=== PATIENT | male | born 1950 | race Caucasian/White ===

== ENCOUNTER 2021-01-15 08:09 | Day surgery (SDC) | payer MEDICARE, OTHER ==
[~2021-01-15] VITALS: Ht 188 cm; Wt 118.0 kg
[2021-01-15] VITALS (9 sets, daily range): BP systolic 122–141; BP diastolic 62–73
[2021-01-15] MEDS ORDERED: diphenhydrAMINE 25mg capsule PO PRN (08:40)
[2021-01-15] MEDS ORDERED: normal saline 1,000 ML IV SCH (08:40)
[2021-01-15] MEDS ORDERED: INSU100V13 (08:54)
[2021-01-15] MEDS ORDERED: METO-539 PO (08:54)
[2021-01-15] MEDS ORDERED: ALBU2.5V10 INH (08:54)
[2021-01-15] MEDS ORDERED: ATOR40TA72 PO (08:54)
[2021-01-15] MEDS ORDERED: ASPI-1071 PO (08:54)
[2021-01-15] MEDS ORDERED: GABA300T25 PO (08:54)
[2021-01-15] MEDS ORDERED: DOCU100C40 PO (08:54)
[2021-01-15] MEDS ORDERED: ASCO125T PO (08:54)
[2021-01-15] MEDS ORDERED: DULA0.75 SQ (08:54)
[2021-01-15] MEDS ORDERED: POTA8TAB3 PO (08:54)
[2021-01-15] MEDS ORDERED: TERA2CAP4 PO (08:54)
[2021-01-15] MEDS ORDERED: MAGN400C PO (08:54)
[2021-01-15] MEDS ORDERED: CHOL500049 PO (08:54)
[2021-01-15] MEDS ORDERED: WARF1TAB83 PO (08:54)
[2021-01-15] MEDS ORDERED: PANT40TA54 PO (08:54)
[2021-01-15] MEDS ORDERED: CANA300T PO (08:54)
[2021-01-15] MEDS ORDERED: iohexol 350 MG/ML 50ML vial IV ONE (09:18)
[2021-01-15] MEDS ORDERED: midazolam 1 mg/ML 2ml injection ONE ×3 (09:18→10:21)
[2021-01-15] MEDS ORDERED: fentaNYL/PF 50MCG/1 ML 2ML syringe ONE (09:18)
[2021-01-15] MEDS ORDERED: LIDOcaine 1% (10mg/ml)w/preservative injection 20ml MDV ONE (09:18)
[2021-01-15] MEDS ORDERED: heparin 1,000unit/ml 10ml vial 10 ML ONE (09:18)
[2021-01-15] MEDS ORDERED: iohexol 350MG/ML 100ml bottle IV ONE (09:19)
[2021-01-15 10:09] LABS: ALBUMIN 4.1 G/DL (3.4-5.0); ANION GAP 11 (8-16); BLOOD UREA NITROGEN 19 MG/DL (7-18); BUN/CREATININE RATIO 16.7 (5.4-32.0); CALCIUM 9.5 MG/DL (8.5-10.1); CHLORIDE 108 MMOL/L (99-107); CREATININE 1.14 MG/DL (0.60-1.10); GLUCOSE 165 MG/DL (70-104); MAGNESIUM 2.1 MG/DL (1.5-2.4); POTASSIUM 4.1 MMOL/L (3.5-5.1); SODIUM 145 MMOL/L (135-145); TOTAL CARBON DIOXIDE 26.4 MMOL/L (24-32); eGFR 63 ML/MIN
[2021-01-15 10:12] LABS: BASOPHILS % (AUTO) 0.7 % (0-1); EOSINOPHILS % (AUTO) 0.6 % (0-6); HEMATOCRIT 46.2 % (42.0-52.0); HEMOGLOBIN 15.3 g/dl (14.0-17.9); LYMPHOCYTES % (AUTO) 16.9 % (21-51); MEAN CORPUSCULAR HEMOGLOBIN 31.1 PG (27.0-31.0); MEAN CORPUSCULAR HGB CONC 33.1 g/dL (33.0-36.5); MEAN CORPUSCULAR VOLUME 93.9 FL (78-98); MEAN PLATELET VOLUME 10.3 FL (7.4-10.4); MONOCYTES # (AUTO) 0.4 X10'3 (0-0.9); MONOCYTES % (AUTO) 6.8 % (2-12); NEUTROPHILS # (AUTO) 4.6 X10'3 (1.8-7.7); PLATELET COUNT 104 X10'3 (140-440); RED BLOOD COUNT 4.92 X10'6 (4.70-6.10); RED CELL DISTRIBUTION WIDTH 14.6 % (11.5-14.5); WHITE BLOOD COUNT 6.1 X10'3 (4.5-11.0)
[2021-01-15] MEDS ORDERED: acetaminophen 325mg tablet PO PRN (11:40)
[2021-01-15] MEDS ORDERED: proCHLORperazine 10 MG/2 ml inj IV PRN (11:40)
[2021-01-15] MEDS ORDERED: ondansetron/PF 4mg/2ml inj IV PRN (11:40)
[2021-01-15] MEDS ORDERED: HYDROcodone/acetaminophen 5mg/325mg tablet PO PRN (11:40)
[2021-01-15] MEDS ORDERED: HYDROcodone/acetaminophen 10/325mg tab PO PRN (11:40)
[2021-01-18] MEDS ORDERED: WARF6TAB49 PO ×2 (13:13)
[2021-01-18] MEDS ORDERED: WARF3TAB56 PO (13:13)
[2021-01-18] MEDS ORDERED: WARF-55 PO (13:13)
[2021-01-18] MEDS ORDERED: PREVAGEN (13:15)
[2021-01-18] MEDS ORDERED: CHOL10006 PO (16:34)
[2021-01-19] MEDS ORDERED: ASCO-134 PO (11:18)
[2021-01-19] MEDS ORDERED: ESOM40CA54 PO (11:18)
[2021-01-19] MEDS ORDERED: MAGN250T11 PO (11:18)
[2021-01-19] MEDS ORDERED: ALBU8HFA PO (11:18)
[2021-01-19] MEDS ORDERED: GABA300C PO (11:18)
[2021-01-19] MEDS ORDERED: WARF-55 PO (11:23)
[2021-01-19] MEDS ORDERED: WARF1TAB83 PO (11:23)
== END 2021-01-15 14:35 | disposition home or self-care (01) ==
LOC: SSTAY O 08:09
PROVIDERS: ATTEND Internal Medicine Cardiovascular Disease
DX: T82.857A Stenosis of other cardiac prosthetic devices, implants and grafts, initial encounter (principal); I27.22 Pulmonary hypertension due to left heart disease; I48.20 Chronic atrial fibrillation, unspecified; E11.9 Type 2 diabetes mellitus without complications; I10 Essential (primary) hypertension; E78.5 Hyperlipidemia, unspecified; Z79.01 Long term (current) use of anticoagulants; Z79.4 Long term (current) use of insulin; Z79.899 Other long term (current) drug therapy; Z79.82 Long term (current) use of aspirin; Z95.3 Presence of xenogenic heart valve; Y83.2 Surgical operation with anastomosis, bypass or graft as the cause of abnormal reaction of the patient, or of later complication, without mention of misadventure at the time of the procedure; Y92.89 Other specified places as the place of occurrence of the external cause
CPT/HCPCS: 36415; 80048; 83735; 85025; 85610; 93005; 93456; 99152; 99153; C1760; C1769; C1894; J1644; J2001; J2250; J3010; Q9967; A4620; A6258; C1751

== ENCOUNTER 2022-07-04 06:26 | Day surgery (SDC) | payer MEDICARE, OTHER ==
[~2022-07-04] VITALS: Ht 188 cm; Wt 118.1 kg
[2022-07-04] VITALS (7 sets, daily range): BP systolic 109–148; BP diastolic 54–80
[~2022-07-04 06:26] MED LIST: ALBU8HFA PO; ASCO-134 PO; ASPI-1071 PO; ATOR40TA72 PO; CANA300T PO; CHOL10006 PO; DOCU100C40 PO; DULA0.75 SQ; ESOM40CA54 PO; GABA300C PO; GUAI600T45 PO; INSU100V13; MAGN250T11 PO; METO-539 PO; POTA-82 PO; PREVAGEN; TERA2CAP4 PO; WARF-55 PO; WARF1TAB83 PO
[2022-07-04] MEDS ORDERED: vancomycin/NS 1 GM ADD-VANTAGE 250 ML X 1 DOSE IV ONE (07:00)
[2022-07-04] MEDS ORDERED: normal saline 1000ml 1,000 ML IV SCH (07:00)
[2022-07-04] MEDS ORDERED: cefazolin/dext.iso 2gm/100ml 100 ML IV ONE (07:00)
[2022-07-04 07:35] LABS: BASOPHILS % (AUTO) 0.6 % (0-1); EOSINOPHILS # (AUTO) 0.1 X10'3 (0-0.9); EOSINOPHILS % (AUTO) 1.5 % (0-6); LYMPHOCYTES # (AUTO) 1.4 X10'3 (1.1-4.8); LYMPHOCYTES % (AUTO) 24.3 % (21-51); MEAN CORPUSCULAR HEMOGLOBIN 31.1 PG (27.0-31.0); MEAN CORPUSCULAR HGB CONC 33.3 g/dL (33.0-36.5); MEAN CORPUSCULAR VOLUME 93.5 FL (78-98); MEAN PLATELET VOLUME 9.9 FL (7.4-10.4); MONOCYTES # (AUTO) 0.6 X10'3 (0-0.9); MONOCYTES % (AUTO) 9.7 % (2-12); NEUTROPHILS # (AUTO) 3.7 X10'3 (1.8-7.7); NEUTROPHILS % (AUTO) 63.9 % (42-75); PLATELET COUNT 106 X10'3 (140-440); RED BLOOD COUNT 4.49 X10'6 (4.70-6.10); RED CELL DISTRIBUTION WIDTH 14.4 % (11.5-14.5); WHITE BLOOD COUNT 5.8 X10'3 (4.5-11.0)
[2022-07-04] MEDS ORDERED: WARF6TAB49 PO (07:49)
[2022-07-04] MEDS ORDERED: WARF-55 PO (07:49)
[2022-07-04] MEDS ORDERED: DOCU100C40 PO (07:49)
[2022-07-04] MEDS ORDERED: POTA8TAB69 PO (07:49)
[2022-07-04] MEDS ORDERED: WARF2.5T82 PO (07:49)
[2022-07-04] MEDS ORDERED: FURO40TA4 PO (07:49)
[2022-07-04] MEDS ORDERED: ESOM40CA PO (07:49)
[2022-07-04] MEDS ORDERED: VANCOmycin 1250MG/NS 250ml Bag 250 ML IV ONE (08:40)
[2022-07-04] MEDS ORDERED: iohexol 350 MG/ML 50ML vial IV ONE ×3 (08:43→10:02)
[2022-07-04] MEDS ORDERED: midazolam 1 mg/ML 2ml injection ONE ×4 (08:43→10:46)
[2022-07-04] MEDS ORDERED: LIDOCAINE 1%/EPI 1:100,000 inj. 10 ML multi-dose vial ONE (08:43)
[2022-07-04] MEDS ORDERED: fentaNYL/PF 50MCG/1 ML 2ML syringe ONE (08:43)
[2022-07-04] MEDS ORDERED: VANCOMYCIN 1,500MG in normal saline IV soln 300 ML IV ONE (08:45)
[2022-07-04 08:53] LABS: ALBUMIN 3.9 G/DL (3.4-5.0); ANION GAP 7 (8-16); BLOOD UREA NITROGEN 18 MG/DL (7-18); BUN/CREATININE RATIO 13.4 (5.4-32.0); CALCIUM 9.6 MG/DL (8.5-10.1); CHLORIDE 107 MMOL/L (99-107); CREATININE 1.34 MG/DL (0.60-1.10); GLUCOSE 123 MG/DL (70-104); MAGNESIUM 2.1 MG/DL (1.5-2.4); POTASSIUM 3.8 MMOL/L (3.5-5.1); SODIUM 143 MMOL/L (135-145); TOTAL CARBON DIOXIDE 28.7 MMOL/L (24-32); eGFR 52 ML/MIN
[2022-07-04] MEDS ORDERED: iohexol 350MG/ML 100ml bottle IV ONE (10:26)
== END 2022-07-04 13:05 | disposition home or self-care (01) ==
LOC: SSTAY O 06:26
PROVIDERS: ATTEND Internal Medicine Cardiovascular Disease
DX: I48.20 Chronic atrial fibrillation, unspecified (principal); I42.9 Cardiomyopathy, unspecified; I44.2 Atrioventricular block, complete; E11.9 Type 2 diabetes mellitus without complications; E78.5 Hyperlipidemia, unspecified; K21.9 Gastro-esophageal reflux disease without esophagitis; Z79.01 Long term (current) use of anticoagulants; Z95.2 Presence of prosthetic heart valve; Z79.4 Long term (current) use of insulin; Z98.890 Other specified postprocedural states
CPT/HCPCS: 33224; 36415; 80048; 82948; 83735; 85025; 85610; 93005; 99152; 99153; C1769; C1894; C1900; J2250; J3010; J3370; J3490; J7030; J7040; Q9967; 33225; A4620

== ENCOUNTER 2022-08-29 06:14 | Day surgery (SDC) | payer MEDICARE, OTHER ==
[2022-08-29] VITALS (9 sets, daily range): BP systolic 113–141; BP diastolic 57–72
[~2022-08-29] VITALS: Ht 188 cm; Wt 112.4 kg
[~2022-08-29 06:14] MED LIST changes: +ESOM40CA PO; -ESOM40CA54 PO; +FURO40TA4 PO; -GUAI600T45 PO; -POTA-82 PO; +POTA8TAB69 PO; -PREVAGEN; -WARF1TAB83 PO; +WARF2.5T82 PO; +WARF6TAB49 PO
[2022-08-29] MEDS ORDERED: cefazolin 2gm/D5W 100mL 100 ML IV ONE (06:40)
[2022-08-29 07:13] LABS: BASOPHILS % (AUTO) 0.7 % (0-1); EOSINOPHILS # (AUTO) 0.1 X10'3 (0-0.9); EOSINOPHILS % (AUTO) 1.6 % (0-6); HEMATOCRIT 45.4 % (42.0-52.0); HEMOGLOBIN 15.2 g/dl (14.0-17.9); LYMPHOCYTES # (AUTO) 1.5 X10'3 (1.1-4.8); LYMPHOCYTES % (AUTO) 23.4 % (21-51); MEAN CORPUSCULAR HEMOGLOBIN 31.2 PG (27.0-31.0); MEAN CORPUSCULAR HGB CONC 33.5 g/dL (33.0-36.5); MEAN CORPUSCULAR VOLUME 93.3 FL (78-98); MEAN PLATELET VOLUME 10.2 FL (7.4-10.4); MONOCYTES # (AUTO) 0.6 X10'3 (0-0.9); MONOCYTES % (AUTO) 9.7 % (2-12); NEUTROPHILS # (AUTO) 4.2 X10'3 (1.8-7.7); NEUTROPHILS % (AUTO) 64.6 % (42-75); PLATELET COUNT 107 X10'3 (140-440); RED BLOOD COUNT 4.86 X10'6 (4.70-6.10); RED CELL DISTRIBUTION WIDTH 14.3 % (11.5-14.5); WHITE BLOOD COUNT 6.5 X10'3 (4.5-11.0)
[2022-08-29 07:22] LABS: ALBUMIN 4.2 G/DL (3.4-5.0); ANION GAP 13 (8-16); BLOOD UREA NITROGEN 28 MG/DL (7-18); BUN/CREATININE RATIO 21.7 (5.4-32.0); CALCIUM 10.1 MG/DL (8.5-10.1); CHLORIDE 104 MMOL/L (99-107); CREATININE 1.29 MG/DL (0.60-1.10); GLUCOSE 190 MG/DL (70-104); MAGNESIUM 2.2 MG/DL (1.5-2.4); POTASSIUM 3.5 MMOL/L (3.5-5.1); SODIUM 147 MMOL/L (135-145); TOTAL CARBON DIOXIDE 30.1 MMOL/L (24-32); eGFR 54 ML/MIN
[2022-08-29] MEDS ORDERED: midazolam 1 mg/ML 2ml injection ONE ×3 (09:53→11:32)
[2022-08-29] MEDS ORDERED: LIDOCAINE 2%/EPI 1:100,000 inj. Multi-dose 20 ML VIAL ONE (09:53)
[2022-08-29] MEDS ORDERED: fentaNYL/PF 50MCG/1 ML 2ML syringe ONE (09:53)
[2022-08-29] MEDS ORDERED: vancomycin 1,000mg inj ONE (09:53)
[2022-08-29] MEDS ORDERED: iohexol 350 MG/ML 50ML vial IV ONE ×2 (10:27→11:02)
[2022-08-29] MEDS ORDERED: HYDROcodone/acetaminophen 10/325mg tab PO PRN (12:20)
[2022-08-29] MEDS ORDERED: HYDROcodone/acetaminophen 5mg/325mg tablet PO PRN (12:20)
== END 2022-08-29 13:55 | disposition home or self-care (01) ==
LOC: SSTAY O 06:14
PROVIDERS: ATTEND Internal Medicine Cardiovascular Disease
DX: Z45.010 Encounter for checking and testing of cardiac pacemaker pulse generator [battery] (principal); I42.8 Other cardiomyopathies; I48.20 Chronic atrial fibrillation, unspecified; E78.5 Hyperlipidemia, unspecified; K21.9 Gastro-esophageal reflux disease without esophagitis; E11.9 Type 2 diabetes mellitus without complications; Z95.3 Presence of xenogenic heart valve; Z79.01 Long term (current) use of anticoagulants; Z79.899 Other long term (current) drug therapy; Z79.82 Long term (current) use of aspirin; Z79.4 Long term (current) use of insulin; Z98.890 Other specified postprocedural states
CPT/HCPCS: 33225; 33229; 36415; 71045; 80048; 83735; 85025; 85610; 93005; 99152; 99153; C1769; C1894; C1900; C2621; J0690; J2250; J3010; J3370; J7030; Q9967; 33220; 33221; 33228